=== PATIENT | male | born 1995 | race Caucasian/White ===

== ENCOUNTER → 2023-01-31 | Emergency (ER) | payer OTHER ==
[~2023-01-31] VITALS: Ht 180.3 cm; Wt 72.6 kg
[~2023-01-31] MED LIST: NIX59 M1 TOP
== END | disposition left against medical advice (07) ==
LOC: ER 14:47
DX: Z53.21 Procedure and treatment not carried out due to patient leaving prior to being seen by health care provider (principal)

== ENCOUNTER 2023-02-04 08:50 | Emergency (ER) | payer OTHER ==
[~2023-02-04] VITALS: Ht 177.8 cm; Wt 72.6 kg
[2023-02-04] MEDS ORDERED: NIX59 M1 TOP (11:10)
== END 2023-02-04 11:23 | disposition home or self-care (01) ==
LOC: ER 08:51
DX: R21 Rash and other nonspecific skin eruption (principal)